=== PATIENT | female | born 2000 | race Caucasian/White ===

== ENCOUNTER 2023-11-01 22:19 | Emergency (ER) | payer OTHER ==
[~2023-11-01] VITALS: Ht 172.7 cm; Wt 70.3 kg
[2023-11-01 22:20] VITALS: BP 115/74; PULSE 89; RESP 19; TEMP 97.9; O2SAT 100
[2023-11-01] MEDS ORDERED: ALBU0.0912 INH (22:48)
[2023-11-01] MEDS ORDERED: PRED20TA5 PO (22:48)
[2023-11-01] MEDS ORDERED: FLUT1DSK2 IH (22:48)
[2023-11-01 22:53] VITALS: PULSE 98; RESP 18; O2SAT 100
[2023-11-01] MEDS: ALBUTEROL 0.083% 2.5 MG/3 ML NEBU INH ONE (22:53)
[2023-11-01] MEDS: predniSONE 20 MG TAB PO ONE (23:37)
== END 2023-11-01 22:40 | disposition home or self-care (01) ==
LOC: MED 22:19
DX: J45.901 Unspecified asthma with (acute) exacerbation (principal); Z79.899 Other long term (current) drug therapy
CPT/HCPCS: 94640; 99283; J7613